=== PATIENT | female | born 1950 | race Caucasian/White ===

== ENCOUNTER 2020-07-24 06:51 | Inpatient (IN) | payer MEDICARE, OTHER ==
[~2020-07-24] VITALS: Ht 152.4 cm; Wt 62.6 kg
[2020-07-24] MEDS ORDERED: BACTROBAN OINT22 GM TOP (10:07)
[2020-07-24] MEDS ORDERED: NORVASC10 MG PO (10:08)
[2020-07-24] MEDS ORDERED: LASIX20 MG PO (10:09)
[2020-07-24] MEDS ORDERED: ASPIRIN325 MG PO (10:09)
[2020-07-24] MEDS ORDERED: OMEPRAZOLE40 MG PO (10:10)
[2020-07-24] MEDS ORDERED: METOPROLOL TART25 MG PO (10:10)
[2020-07-24] MEDS ORDERED: POTASSIUM CHLO10 MEQ PO (10:11)
[2020-07-24] MEDS ORDERED: VITAMIN C500 M4 PO (10:12)
[2020-07-24] MEDS ORDERED: VITAMIN D31250 MCG PO (10:12)
[2020-07-24] MEDS ORDERED: BUMETANIDE0.5 MG PO (10:13)
[2020-07-24] MEDS ORDERED: CLONIDINE HCL0.1 M1 PO (10:14)
[2020-07-24 11:12] LABS: HEMOGLOBIN 13.4 gm/dl (12.3-15.3); RED BLOOD COUNT 4.33 M/UL (4.00-5.10); WHITE BLOOD COUNT 9.9 K/UL (4.5-11.0)
[2020-07-24 11:41] LABS: BUN/CREATININE RATIO 18 (0-10)
[2020-07-25 04:08] LABS: HEMOGLOBIN 13.8 gm/dl (12.3-15.3); RED BLOOD COUNT 4.5 M/UL (4.00-5.10); WHITE BLOOD COUNT 8.3 K/UL (4.5-11.0)
[2020-07-25 04:41] LABS: BUN/CREATININE RATIO 16 (0-10)
[2020-07-25 11:15] LABS: HBSAG SCREEN Negative (Negative); HEP A AB, IGM Negative (Negative); HEP B CORE AB, IGM Negative (Negative); HEP C VIRUS AB <0.1 (0.0-0.9)
--- NOTE | 2020-07-25 13:13 | NUR ---
NOTIFIED MD OF ELEVATATED HR OF 115. MD ORDERED METORPOLOL 25MG PO BID FIRST DOSE NOW.
[2020-07-26 05:26] LABS: HEMOGLOBIN 15.5 gm/dl (12.3-15.3); WHITE BLOOD COUNT 9.7 K/UL (4.5-11.0)
[2020-07-26 05:34] LABS: RED BLOOD COUNT 5.01 M/UL (4.00-5.10)
[2020-07-26 06:00] LABS: BUN/CREATININE RATIO 13 (0-10)
[2020-07-26] MEDS ORDERED: FLAGYL500 MG PO (11:48)
[2020-07-26] MEDS ORDERED: LEVOFLOXACIN500 MG PO (11:48)
== END 2020-07-26 13:54 | disposition home or self-care (01) | DRG 872 ==
LOC: MED SURG 4 08:10
PROVIDERS: Internal Medicine; Physician Assistant; ADMIT Internal Medicine
DX: A41.9 Sepsis, unspecified organism (principal); J96.11 Chronic respiratory failure with hypoxia; B17.9 Acute viral hepatitis, unspecified; K83.09 Other cholangitis; K52.9 Noninfective gastroenteritis and colitis, unspecified; R74.01 Elevation of levels of liver transaminase levels; E87.6 Hypokalemia; I44.7 Left bundle-branch block, unspecified; I10 Essential (primary) hypertension; E78.5 Hyperlipidemia, unspecified; J44.9 Chronic obstructive pulmonary disease, unspecified; K21.9 Gastro-esophageal reflux disease without esophagitis; F17.210 Nicotine dependence, cigarettes, uncomplicated; F03.90 Unspecified dementia, unspecified severity, without behavioral disturbance, psychotic disturbance, mood disturbance, and anxiety; Z79.899 Other long term (current) drug therapy; Z79.82 Long term (current) use of aspirin; Z90.49 Acquired absence of other specified parts of digestive tract; D72.829 Elevated white blood cell count, unspecified; D72.819 Decreased white blood cell count, unspecified; Z99.81 Dependence on supplemental oxygen
CPT/HCPCS: 36415; 74181; 76705; 80053; 80074; 80307; 81001; 82140; 82550; 82553; 83605; 84484; 85025; 85610; 86140; 87040; 93005; G0480; J1650; J1956; J3480; J7030